=== PATIENT | female | born 1935 | race Caucasian/White ===

== ENCOUNTER 2016-11-24 09:54 | Emergency (ER) | payer OTHER ==
[2016-11-24 09:57] VITALS: BMI 29.0
--- NOTE | 2016-11-24 10:11 | DR.CP ---
HPI - Time Seen Time seen: 10:00 - PCP Primary Care Physician: Annamaria BLEVINS - HPI Comment HPI Comment: SUDDEN ONSET OF SUBSTERNAL PAIN RADIATING TO JAWS AND RIGHT ARM. PAIN RADIATES TO HER TEETH WE. SLIGHT SOB. PAIN SPONTANOUSLY DECREASING AND RESOLVE WHILE IN ED. - Complaint Chief Complaint Doctor Comments: CHEST PAIN. Chief Complaint:: PT. C/O CHEST PAIN, RIGHT ARM PAIN, AND JAW PAIN. PT. STATES "MY TEETH HURT." PT. ALSO C/O SOB. - Reviewed Nurses Notes Review: Yes - Source History Provided: Patient - Mode of Arrival Mode of Arrival: Ambulatory - Timing Onset of Chief Complaint: 11/24/16 Came on: Suddenly Pain: Resolved (IN ED SPONTANOUSLY) - Duration Duration: Since Onset Duration: Hours - Location Location of Chest Pain: Chest Chest Pain Radiation Location: Left Jaw (AND TEETH), Right Jaw, Right Arm - Context Cardiac Risk Factors: Family History, Hyperlipidemia PE Risk Factors: None History of: None Prehospital Care: Other (GI MED.) - Quality Quality: Pressure like, Aching - Severity Severity: Moderate - Modifying Factors Worsens: Nothing Impoves: Nothing - Associated Signs and Symptoms Associated Signs and Symptoms: Shortness of Breath PMH - PMH Past Medical History: No Past Surgical History: Yes Surgical History: Thyroidectomy - Family History History of Family Medical Conditions: No - Social History Does patient currently use any type of tobacco product: No Have you used tobacco products in the last 12 months: No Type of Tobacco Use: None Does any household member use tobacco: No Alcohol Use: None Do you use any recreational Drugs:: No Lives With: Alone Lives Where: Home - infectious screening In the last 2 months have you had wt loss of >10#?: NO Have you had fever, night sweats or hemotysis?: No Have you traveled outside the country in the last 6 months?: No Isolation: Standard ROS - Review of Systems Constitutional: No Symptoms Reported Eyes: No Symptoms Reported ENTM: No Symptoms Reported Respiratoy: Short of Breath Cardiovascular: Chest Pain Gastrointestinal/Abdominal: No Symptoms Reported Genitourinary: No Symptoms Reported Neurological: No Symptoms Reported Musculoskeletal: Muscle Pain Integumentary: No Symptoms Reported Hematologic/Lymphatic: No Symptoms Reported Endocrine: No Symptoms Reported All Other Systems: Reviewed and Negative PE - Vitals Vitals: Temperature 97.1 F Pulse Rate 74 Respiratory Rate 16 Blood Pressure 137/63 O2 Sat by Pulse Oximetry 97 - General Limitations: No Limitations General Appearance: Alert - Head Head Exam: Normal Inspection - Eyes Eye exam: Normal Appearance, PERRL, EOMI. negative: Scleral Icterus, Conjunctival Injection, Nystagmus, Periorbital Swelling, Periorbital Tenderness - ENT ENT Exam: Normal External Ear Exam - Chest Chest Inspection: Symmetric Chest Wall Rise - Respiratory Respiratory Exam: Normal Lung Sounds Bilat Respiratory Exam: Bilateral Clear to Auscultation - Cardiovascular Cardiovascular Exam: Regular Rate, Normal Rhythm, Normal Heart Sounds Pulse: Normal, Radial, Femoral Edema: Normal - Abdominal Exam Abdominal Exam: Normal Bowel Sounds, Soft, Tenderness - Extremities Extremities Exam: Normal Inspection - Back Back Exam: Normal Inspection - Neurologic Neurological Exam: Alert, Oriented X3, CN II-XII Intact, Normal Gait, Motor Sensory Deficit, Reflexes Normal - Psychiatric Psychiatric Exam: Anxious - Skin Skin Exam: Warm, Dry MDM - Additional Information Additional Information Obtained From: Family - Differential Diagnosis Differential Diagnosis: Angina, Chest Wall Pain, Gastritis, Myocardial Infarction, Pericarditis, Pancreatitis, Pneumonia, Pneumothorax, Pulmonary Embolus Course - Treatment Treatment: SEE ORDERTS. - Consultation Consultation Comments: DISCUSS PATIENT WITH DR. BENAVIDES. HE WILL ADMIT PATIENT. - Education/Counseling Education/Counseling: Patient, Family, Education Educated On: Diagnosis ROR - Labs Reviewed Laboratory Results Reviewed?: Yes Result Diagrams: 11/25/16 03:15 11/24/16 10:15 Laboratory: WBC 5.3 X10^3/uL (3.6-10.0) 11/24/16 10:15 RBC 4.87 X10^6/uL (3.5-5.4) 11/24/16 10:15 Hgb 14.4 g/dL (12.0-16.0) 11/24/16 10:15 Hct 42.1 % (36.0-47.0) 11/24/16 10:15 MCV 86.3 fL (80.0-100.0) 11/24/16 10:15 MCH 29.6 pg (27.0-34.0) 11/24/16 10:15 MCHC 34.3 g/dL (33.0-35.0) 11/24/16 10:15 RDW 13.3 % (11.6-16.5) 11/24/16 10:15 Plt Count 207 X10^3/uL (150.0-450.0) 11/24/16 10:15 MPV 8.6 fL (7.4-11.0) 11/24/16 10:15 Neut % 62.5 % (42.0-75.0) 11/24/16 10:15 Lymph % 27.8 % (21.0-51.0) 11/24/16 10:15 [place] % 6.4 % (0.0-13.0) 11/24/16 10:15 Eos % 2.4 % (0.9-2.9) 11/24/16 10:15 Baso % 0.9 % (0.2-1.0) 11/24/16 10:15 Neut # 3.3 x10^3/uL (2.2-4.8) 11/24/16 10:15 Lymph # 1.5 X10^3/uL (1.3-2.9) 11/24/16 10:15 [place] # 0.3 x10^3/uL (0.3-0.8) 11/24/16 10:15 Eos # 0.1 x10^3/uL (0.0-0.2) 11/24/16 10:15 Baso # 0.0 X10^3/uL (0.0-0.1) 11/24/16 10:15 Absolute Nucleated RBC 0.1 /100WBC 11/24/16 10:15 INR Target Range - 11/24/16 10:15 INR 0.98 (0.8-1.3) 11/24/16 10:15 PTT 32.7 SECONDS (22.9-36.5) 11/24/16 10:15 PTT Comment - 11/24/16 10:15 Sodium 143 mmol/L (136-145) 11/24/16 10:15 Corrected Sodium 145 mmol/L (136-145) 11/24/16 10:15 Potassium 4.0 mmol/L (3.5-5.1) 11/24/16 10:15 Chloride 106 mmol/L (98-107) 11/24/16 10:15 Carbon Dioxide 25.2 mmol/L (21-32) 11/24/16 10:15 BUN 24 mg/dL (7-18) H 11/24/16 10:15 Creatinine 0.98 mg/dL (0.55-1.02) 11/24/16 10:15 Est GFR (MDRD) Af Amer > 60 (>60) 11/24/16 10:15 Est GFR (MDRD) Non-Af 58 (>60) L 11/24/16 10:15 Glucose 174 mg/dL (65-99) H 11/24/16 10:15 Calcium 9.7 mg/dL (8.5-10.1) 11/24/16 10:15 Corrected Calcium TNP 11/24/16 10:15 Magnesium 2.2 mg/dL (1.7-2.9) 11/24/16 10:15 Total Bilirubin 0.60 mg/dL (0.2-1.0) 11/24/16 10:15 AST 23 Units/L (15-37) 11/24/16 10:15 ALT 32 Units/L (12-78) 11/24/16 10:15 Alkaline Phosphatase 68 Units/L (46-116) 11/24/16 10:15 Creatine Kinase 123 Units/L (26-192) 11/24/16 10:15 CK-MB (CK-2) 2.9 ng/mL (0-4.0) 11/24/16 10:15 CK/CKMB % Calc 2.4 % (<4) 11/24/16 10:15 Troponin I < 0.02 ng/mL (0-1.5) 11/24/16 10:15 B-Natriuretic Peptide 33.9 pg/mL (0-79) 11/24/16 10:15 Total Protein 7.4 g/dL (6.4-8.2) 11/24/16 10:15 Albumin 4.1 g/dL (3.4-5.0) 11/24/16 10:15 Globulin 3.3 g/dL (2.5-4.5) 11/24/16 10:15 Albumin/Globulin Ratio 1.2 Ratio (1.1-2.1) 11/24/16 10:15 Triglycerides 83 mg/dL (0-150) 11/24/16 10:15 Cholesterol 182 mg/dL (0-200) 11/24/16 10:15 LDL Cholesterol, Calc 101 mg/dL (0-100) H 11/24/16 10:15 HDL Cholesterol 64 mg/dL (40-60) H 11/24/16 10:15 Cholesterol/HDL Ratio 2.8 (0.0-5.0) 11/24/16 10:15 - XRAY XRAY Interpreted by: Radiologist XRAY Findings: REPORT DISCUSS WITH PATIENT AND FAMILY. - EKG Rhythm: NSR (EKG NOTED) - Diagnosis Discharge Problem: Chest pain Qualifiers: Chest pain type: precordial pain Qualified Code(s): R07.2 - Precordial pain - Discharge Plan Disposition: ADMITTED INPATIENT Condition: Stable - Follow ups/Referrals - Instructions
[2016-11-24] MEDS ORDERED: ASPIRIN 81 MG CHEWTAB ONE (10:14)
--- NOTE | 2016-11-24 10:34 | RAD ---
Chest, one view Indication: Chest pain, shortness of breath Comparison: None Findings: Cardiac silhouette is unremarkable. The lungs are mildly hypoinflated, but essentially tammy ar, without dense infiltrate or large pleural effusion. The bony thorax is unremarkable. Impression: No acute cardiopulmonary disease. Reported By:
[2016-11-24 10:48] LABS: BLOOD UREA NITROGEN 24 mg/dL (7-18); CALCIUM 9.7 mg/dL (8.5-10.1); CARBON DIOXIDE 25.2 mmol/L (21-32); CHLORIDE 106 mmol/L (98-107); COR NA(FOR HYPERGLY) 145 mmol/L (136-145); CREATININE 0.98 mg/dL (0.55-1.02); GLUCOSE 174 mg/dL (65-99); SODIUM 143 mmol/L (136-145); TROPONIN I < 0.02 ng/mL (0-1.5); eGFR BLACK RACES > 60 (>60); eGFR NON BLACK RACES 58 (>60)
[2016-11-24 10:50] LABS: B-TYPE NATRIURETIC PEPTIDE 33.9 pg/mL (0-79)
[2016-11-24 10:51] LABS: ALANINE AMINOTRANSFERASE 32 Units/L (12-78); ALBUMIN 4.1 g/dL (3.4-5.0); ALKALINE PHOSPHATASE 68 Units/L (46-116); ASPARTATE AMINO TRANSFERASE 23 Units/L (15-37); CHOL/HDL RATIO 2.8 (0.0-5.0); CHOLESTEROL 182 mg/dL (0-200); CKMB % 2.4 % (<4); CREATINE KINASE 123 Units/L (26-192); CREATINE KINASE MB 2.9 ng/mL (0-4.0); HDL CHOLESTEROL 64 mg/dL (40-60); MAGNESIUM 2.2 mg/dL (1.7-2.9); TOTAL PROTEIN 7.4 g/dL (6.4-8.2); TRIGLYCERIDES 83 mg/dL (0-150)
[2016-11-24 10:58] LABS: BASOPHILS % (AUTO) 0.9 % (0.2-1.0); EOSINOPHILS # (AUTO) 0.1 x10^3/uL (0.0-0.2); EOSINOPHILS % (AUTO) 2.4 % (0.9-2.9); HEMATOCRIT 42.1 % (36.0-47.0); HEMOGLOBIN 14.4 g/dL (12.0-16.0); LYMPHOCYTES # (AUTO) 1.5 X10^3/uL (1.3-2.9); LYMPHOCYTES % (AUTO) 27.8 % (21.0-51.0); MEAN CORPUSCULAR HEMOGLOBIN 29.6 pg (27.0-34.0); MEAN CORPUSCULAR HGB CONC 34.3 g/dL (33.0-35.0); MEAN CORPUSCULAR VOLUME 86.3 fL (80.0-100.0); MEAN PLATELET VOLUME 8.6 fL (7.4-11.0); MONOCYTES # (AUTO) 0.3 x10^3/uL (0.3-0.8); MONOCYTES % (AUTO) 6.4 % (0.0-13.0); NEUTROPHILS # (AUTO) 3.3 x10^3/uL (2.2-4.8); NEUTROPHILS % (AUTO) 62.5 % (42.0-75.0); PLATELET COUNT 207 X10^3/uL (150.0-450.0); RED BLOOD COUNT 4.87 X10^6/uL (3.5-5.4); RED CELL DISTRIBUTION WIDTH 13.3 % (11.6-16.5); WHITE BLOOD COUNT 5.3 X10^3/uL (3.6-10.0)
[2016-11-24] MEDS ORDERED: ASPIRIN 81 MG CHEWTAB PO SCH (11:00)
[2016-11-24] MEDS ORDERED: NITROSTAT SL PRN ×2 (11:33→12:26)
[2016-11-24] MEDS ORDERED: NS 1/2 1000 ML IV 1,000 ML IV SCH (12:00)
[2016-11-24] MEDS ORDERED: PEPCID 20 MG IV PREMIX* 20 MG/50 ML BAG IV SCH (12:00)
[2016-11-24 16:16] LABS: CKMB % 2.5 % (<4); CREATINE KINASE 112 Units/L (26-192); CREATINE KINASE MB 2.8 ng/mL (0-4.0); TROPONIN I < 0.02 ng/mL (0-1.5)
[2016-11-24] MEDS ORDERED: NS 1/2 1000 ML IV 1,000 ML IV ONE (17:08)
--- NOTE | 2016-11-24 19:06 | DR.H&P ---
H&P - History & Physical for Day of: H&P Date: 11/24/16 - Chief Complaint Chief Complaint: CP - Allergies Allergies/Adverse Reactions: Allergies Allergy/AdvReac Type Severity Reaction Status Date / Time Codeine AdvReac Intermediate NAUSEA Verified 11/24/16 09:57 - History of Present Illness History of Present Illness: 81 WF ER ADMISSION AFTER PRESENTING WITH CO CP RADIATING UP CHEST TO BACK AND THROAT. PT STATES SHE HAS NO HX CAD, HAD CATH 2- [address] MCKAY DUE TO SIMILAR EPISODE. PT DENIES ANY KNOWN GERD. PLAN TO ADMIT R/O AMI, SERIAL CE, GB US - Past Medical History Past Medical History: Dyslipidemia, Hypothyroidism - Past Surgical History Surgical History: Thyroidectomy, Tonsillectomy - Family History Family Medical History: Diabetes Mellitus, Cancer, Heart Failure - Social History Does patient currently use any type of tobacco product: No Have you used tobacco products in the last 12 months: No Type of Tobacco Use: None Does any household member use tobacco: No Alcohol Use: None Drug Use: None - Medications Home Medications: Bimatoprost [LUMIGAN OPHTH SOLN 2.5 ML *] 1 drop EACHEYE HS 11/24/16 [History Confirmed 11/24/16] Calcium Carbonate-Cholecalcife [Calcium 600+D3 600-800 mg-Unit] 1 tab PO DAILY 11/24/16 [History Confirmed 11/24/16] Donepezil Hydrochloride [ARICEPT TAB 5 MG *] 1 tab PO HS 11/24/16 [History Confirmed 11/24/16] Ergocalciferol [Vitamin D (1.25MG)] 1 cap PO .WEEKLY 11/24/16 [History Confirmed 11/24/16] Fenofibrate [Fenofibrate 160 mg] 1 tab PO HS 11/24/16 [History Confirmed ] Furosemide [LASIX TAB 20 MG *] 1 tab PO DAILY PRN 11/24/16 [History Confirmed ] Levothyroxine Sodium [SYNTHROID 125 mcg *] 1 tab PO DAILY 11/24/16 [History Confirmed 11/24/16] Meloxicam [MOBIC 15 MG *] 1 tab PO DAILY 11/24/16 [History Confirmed 11/24/16] - Review of Systems Constitutional: No Symptoms Reported Eyes: No Symptoms Reported ENT: No Symptoms Reported Respiratory: No Symptoms Reported Cardiovascular: Chest Pain Gastrointestinal: denies: Diarrhea, Constipation Genitourinary: No Symptoms Reported Musculoskeletal: No Symptoms Reported Skin: No Symptoms Reported Neurological: No Symptoms Reported - Physical Exam Vital Signs: Temperature 97.5 F Pulse Rate [Left Brachial] 66 Respiratory Rate 16 Blood Pressure [Left Arm] 167/85 O2 Sat by Pulse Oximetry 93 Oriented: Normal Eyes: Normal Ear: Normal Nose: Normal Throat: Normal Respiratory: Clear Throughout Cardiovascular: Normal : Normal Auscultation: Bowel Sounds: Normal Palpation: Normal Tenderness: Epigastric Skin: Normal Musculoskeletal: Normal Psychiatric: Normal Speech Pattern: Clear, Appropriate - Assessment/Plan (1) Chest pain Qualifiers: Chest pain type: C Ischemic chest pain type: I Status: Acute Plan: ADMIT, R/O AMI, SERIAL CE AND EKGS, CXR ON ADMISSION. PROTONIX IV, AM GB US (2) Hyperlipidemia Qualifiers: Hyperlipidemia type: H Status: Acute Plan: RESUME HOME MEDS
[2016-11-24] MEDS: PROTONIX INJ 40 MG VIAL IVP SCH (20:23)
[2016-11-24] MEDS: PEPCID 20 MG IV PREMIX* 20 MG/50 ML BAG IV SCH (20:24)
[2016-11-24] MEDS ORDERED: TRICOR TAB 160 MG PO SCH (21:00)
[2016-11-24 23:41] LABS: CKMB % 2.4 % (<4); CREATINE KINASE 96 Units/L (26-192); CREATINE KINASE MB 2.3 ng/mL (0-4.0); TROPONIN I < 0.02 ng/mL (0-1.5)
[2016-11-25 05:29] LABS: BASOPHILS % (AUTO) 0.5 % (0.2-1.0); EOSINOPHILS # (AUTO) 0.2 x10^3/uL (0.0-0.2); EOSINOPHILS % (AUTO) 2.8 % (0.9-2.9); HEMATOCRIT 40.1 % (36.0-47.0); HEMOGLOBIN 13.6 g/dL (12.0-16.0); LYMPHOCYTES # (AUTO) 1.9 X10^3/uL (1.3-2.9); LYMPHOCYTES % (AUTO) 35.4 % (21.0-51.0); MEAN CORPUSCULAR HEMOGLOBIN 29.7 pg (27.0-34.0); MEAN CORPUSCULAR VOLUME 87.2 fL (80.0-100.0); MEAN PLATELET VOLUME 8.4 fL (7.4-11.0); MONOCYTES # (AUTO) 0.4 x10^3/uL (0.3-0.8); MONOCYTES % (AUTO) 7.4 % (0.0-13.0); NEUTROPHILS % (AUTO) 53.9 % (42.0-75.0); PLATELET COUNT 196 X10^3/uL (150.0-450.0); RED CELL DISTRIBUTION WIDTH 13.4 % (11.6-16.5); WHITE BLOOD COUNT 5.5 X10^3/uL (3.6-10.0)
[2016-11-25 06:12] LABS: ALANINE AMINOTRANSFERASE 33 Units/L (12-78); ALBUMIN 3.7 g/dL (3.4-5.0); ALKALINE PHOSPHATASE 61 Units/L (46-116); AMYLASE 29 Units/L (25-115); ASPARTATE AMINO TRANSFERASE 24 Units/L (15-37); BLOOD UREA NITROGEN 20 mg/dL (7-18); CALCIUM 8.7 mg/dL (8.5-10.1); CARBON DIOXIDE 23.5 mmol/L (21-32); CHLORIDE 107 mmol/L (98-107); CREATININE 0.89 mg/dL (0.55-1.02); GLUCOSE 107 mg/dL (65-99); LIPASE 142 Units/L (73-393); SODIUM 143 mmol/L (136-145); eGFR BLACK RACES > 60 (>60); eGFR NON BLACK RACES > 60 (>60)
--- NOTE | 2016-11-25 07:46 | US ---
HISTORY: Chest pain radiating to shoulder Study: Right upper quadrant abdominal ultrasound Comparison: No priors Technique: Multiple currie scale and color flow Doppler images of the right upper quadrant were obtain ed. Findings: The liver is normal in echotexture and size. No focal intraparenchymal mass or intrahepatic biliary ductal dilatation can be observed. Multiple small stones are present within the gallbladder. The l argest measurable stone is about 4.9 millimeters.. The common bile duct is unremarkable measuring 4 millimeters. No pericholecystic fluid or gallbladder wall thickening can be observed. The right kidney appears normal in size without focal parenchymal mass or nephrolithiasis. The righ t kidney measurers 4.2 x 4.9 x 9.9 centimeters.. No hydronephrosis or perirenal fluid can be observ ed. The pancreas is normal. IMPRESSION: Multiple small gallstones are present without gallbladder wall thickening or pericholecystic fluid. Reported By:
[2016-11-25] MEDS: PEPCID 20 MG IV PREMIX* 20 MG/50 ML BAG IV SCH (08:36)
[2016-11-25] MEDS: PROTONIX INJ 40 MG VIAL IVP SCH (08:37)
[2016-11-25 08:50] VITALS: BP 147/74
[2016-11-25] MEDS ORDERED: SYNTHROID 125 mcg TAB PO SCH (09:00)
[2016-11-25] MEDS ORDERED: ASPIRIN PO SCH ×2 (09:00)
[2016-11-25] MEDS ORDERED: NS 1/2 1000 ML IV 1,000 ML IV SCH (12:00)
--- NOTE | 2016-11-25 14:50 | PCM.DCPLAN ---
Discharge Summary - Admission Date Date of Admission: 11/24/16 - Discharge Date Discharge Date: 11/25/16 - Admission Diagnoses (1) Chest pain Status: Acute (2) Hyperlipidemia Status: Acute - Discharge Diagnoses Discharge Diagnosis: CP HYPOTHYROID HYPERLIPIDEMIA - Discharge Medications Discharge Medications: Bimatoprost [LUMIGAN OPHTH SOLN 2.5 ML *] 1 drop EACHEYE HS 11/24/16 [History] Calcium Carbonate-Cholecalcife [Calcium 600+D3 600-800 mg-Unit] 1 tab PO DAILY 11/24/16 [History] Donepezil Hydrochloride [ARICEPT TAB 5 MG *] 1 tab PO HS 11/24/16 [History] Ergocalciferol [Vitamin D (1.25MG)] 1 cap PO .WEEKLY 11/24/16 [History] Fenofibrate [Fenofibrate 160 mg] 1 tab PO HS 11/24/16 [History] Furosemide [LASIX TAB 20 MG *] 1 tab PO DAILY PRN 11/24/16 [History] Levothyroxine Sodium [SYNTHROID 125 mcg *] 1 tab PO DAILY 11/24/16 [History] Meloxicam [MOBIC 15 MG *] 1 tab PO DAILY 11/24/16 [History] - Hospital Course Vital Signs: Temperature 98.1 F Pulse Rate [Left Brachial] 66 Respiratory Rate 16 Blood Pressure [Left Arm] 147/74 O2 Sat by Pulse Oximetry 94 Latest Lab Results: Laboratory Last Values WBC 5.5 X10^3/uL (3.6-10.0) 11/25/16 03:15 RBC 4.60 X10^6/uL (3.5-5.4) 11/25/16 03:15 Hgb 13.6 g/dL (12.0-16.0) 11/25/16 03:15 Hct 40.1 % (36.0-47.0) 11/25/16 03:15 MCV 87.2 fL (80.0-100.0) 11/25/16 03:15 MCH 29.7 pg (27.0-34.0) 11/25/16 03:15 MCHC 34.0 g/dL (33.0-35.0) 11/25/16 03:15 RDW 13.4 % (11.6-16.5) 11/25/16 03:15 Plt Count 196 X10^3/uL (150.0-450.0) 11/25/16 03:15 MPV 8.4 fL (7.4-11.0) 11/25/16 03:15 Neut % 53.9 % (42.0-75.0) 11/25/16 03:15 Lymph % 35.4 % (21.0-51.0) 11/25/16 03:15 [place] % 7.4 % (0.0-13.0) 11/25/16 03:15 Eos % 2.8 % (0.9-2.9) 11/25/16 03:15 Baso % 0.5 % (0.2-1.0) 11/25/16 03:15 Neut # 3.0 x10^3/uL (2.2-4.8) 11/25/16 03:15 Lymph # 1.9 X10^3/uL (1.3-2.9) 11/25/16 03:15 [place] # 0.4 x10^3/uL (0.3-0.8) 11/25/16 03:15 Eos # 0.2 x10^3/uL (0.0-0.2) 11/25/16 03:15 Baso # 0.0 X10^3/uL (0.0-0.1) 11/25/16 03:15 Absolute Nucleated RBC 0.1 /100WBC 11/25/16 03:15 INR Target Range - 11/24/16 10:15 INR 0.98 (0.8-1.3) 11/24/16 10:15 PTT 32.7 SECONDS (22.9-36.5) 11/24/16 10:15 PTT Comment - 11/24/16 10:15 Sodium 143 mmol/L (136-145) 11/25/16 03:15 Corrected Sodium TNP 11/25/16 03:15 Potassium 3.8 mmol/L (3.5-5.1) 11/25/16 03:15 Chloride 107 mmol/L (98-107) 11/25/16 03:15 Carbon Dioxide 23.5 mmol/L (21-32) 11/25/16 03:15 BUN 20 mg/dL (7-18) H 11/25/16 03:15 Creatinine 0.89 mg/dL (0.55-1.02) 11/25/16 03:15 Est GFR (MDRD) Af Amer > 60 (>60) 11/25/16 03:15 Est GFR (MDRD) Non-Af > 60 (>60) 11/25/16 03:15 Glucose 107 mg/dL (65-99) H 11/25/16 03:15 Hemoglobin A1c 5.7 % (4.5-6.2) 11/24/16 10:15 Calcium 8.7 mg/dL (8.5-10.1) 11/25/16 03:15 Corrected Calcium TNP 11/25/16 03:15 Magnesium 2.2 mg/dL (1.7-2.9) 11/24/16 10:15 Total Bilirubin 0.50 mg/dL (0.2-1.0) 11/25/16 03:15 AST 24 Units/L (15-37) 11/25/16 03:15 ALT 33 Units/L (12-78) 11/25/16 03:15 Alkaline Phosphatase 61 Units/L (46-116) 11/25/16 03:15 Creatine Kinase 96 Units/L (26-192) 11/24/16 22:30 CK-MB (CK-2) 2.3 ng/mL (0-4.0) 11/24/16 22:30 CK/CKMB % Calc 2.4 % (<4) 11/24/16 22:30 Troponin I < 0.02 ng/mL (0-1.5) 11/24/16 22:30 B-Natriuretic Peptide 33.9 pg/mL (0-79) 11/24/16 10:15 Total Protein 7.0 g/dL (6.4-8.2) 11/25/16 03:15 Albumin 3.7 g/dL (3.4-5.0) 11/25/16 03:15 Globulin 3.3 g/dL (2.5-4.5) 11/25/16 03:15 Albumin/Globulin Ratio 1.1 Ratio (1.1-2.1) 11/25/16 03:15 Triglycerides 83 mg/dL (0-150) 11/24/16 10:15 Cholesterol 182 mg/dL (0-200) 11/24/16 10:15 LDL Cholesterol, Calc 101 mg/dL (0-100) H 11/24/16 10:15 HDL Cholesterol 64 mg/dL (40-60) H 11/24/16 10:15 Cholesterol/HDL Ratio 2.8 (0.0-5.0) 11/24/16 10:15 Amylase 29 Units/L (25-115) 11/25/16 03:15 Lipase 142 Units/L (73-393) 11/25/16 03:15 H. pylori IgG Antibody Negative (NEGATIVE) 11/24/16 10:15 Hospital Course: PATIENT IS A 81-YEAR-OLD WHITE FEMALE WHO WAS ADMITTED FROM THE EMERGENCY ROOM AFTER PRESENTING WITH COMPLAINTS OF CHEST PAIN. pATIENT STATED PAIN RADIATED FROM CHEST UP TO NECK. pATIENT DENIES ANY SHORTNESS OF BREATH DIZZINESS HEADACHE BLURRY VISION. pATIENT STATES SHE'S HAD 3 OTHER EPISODES SIMILAR WITHIN THE LAST 2-3 YEARS. pATIENT HAD A HEART CATHETER LESS THAN 2 YEARS AGO PER dR. MCKAY WITHOUT ANY CORONARY ARTERY BLOCKAGES. pATIENT DOES HAVE HISTORY OF THYROID DISEASE STATUS POST THYROIDECTOMY ON sYNTHROID AND HYPERLIPIDEMIA. pATIENT DENIES ANY INTESTINAL/gi SYMPTOMS AT THIS TIME. pATIENT WAS ADMITTED FOR SERIAL CARDIAC ENZYMES AND ekgS TO RULE OUT ACUTE mi. pATIENT ALSO HAD AMYLASE AND LIPASE WELL GALLBLADDER ULTRASOUND. pATIENT'S lftS AND AMYLASE AND LIPASE WERE NORMAL PATIENT WAS NOTED TO HAVE MULTIPLE GALLSTONES WITHOUT SIGNS OR SYMPTOMS OF CHOLECYSTITIS. pATIENT DENIED ANY EPISODES OF PAIN SINCE ADMISSION AND STATED SHE WAS READY TO GO HOME. pATIENT WAS DISCHARGED HOME ON MEDICATIONS SHE WAS TAKING PRIOR TO ADMISSION. pATIENT INSTRUCTED TO FOLLOW-UP WITH HER PRIMARY CARE wHILE IN 1 WEEK FOR FURTHER EVALUATION OF CHEST PAIN. pATIENT INFORMED OF DIAGNOSTIC TESTS FINDINGS RECOMMENDED HER FOLLOW-UP WITH THE SURGEON ON AN OUTPATIENT BASIS. pATIENT INSTRUCTED TO FOLLOW A BLAND DIET TO AVOID ANY gi UPSET OR gi RELATED CHEST PAIN. pATIENT ALSO INSTRUCTED TO FOLLOW-UP WITH dR. MCKAY ON OUTPATIENT BASIS. pATIENT VERBALIZED UNDERSTANDING AND AND WAS PAIN- FREE AND STABLE ON DISCHARGE. - Discharge Plan Disposition: 01 HOME, SELF-CARE Condition: Stable - Follow ups/Referrals Follow ups/Referrals: MIKALA BLEVINS [Primary Care Provider] - 3 days - Instructions
== END 2016-11-25 09:52 | disposition home or self-care (01) | DRG 313 ==
LOC: ER 10:05 → OBS 11:26 → ER 12:06
PROVIDERS: ADMIT Internal Medicine; ATTEND Internal Medicine
DX: R07.2 Precordial pain (principal); E78.2 Mixed hyperlipidemia; E03.8 Other specified hypothyroidism; R94.31 Abnormal electrocardiogram [ECG] [EKG]; R06.02 Shortness of breath; M79.601 Pain in right arm; R68.84 Jaw pain; K80.20 Calculus of gallbladder without cholecystitis without obstruction
CPT/HCPCS: 36415; 71010; 76705; 80053; 80061; 82150; 82550; 82553; 83036; 83690; 83735; 83880; 84484; 85025; 85610; 85730; 86677; 93005; 93010; 94760; 96365; 99284; A4222; C9113; S0028; G0378

== ENCOUNTER 2016-12-15 09:25 | Day surgery (SDC) | payer OTHER ==
[2016-12-15] MEDS ORDERED: NS 50 ML IV + SPIKE MINIBAG* 50 ML IV ONE ×2 (09:45→12:21)
[2016-12-15] MEDS ORDERED: ANCEF VIAL 1 GM ONE ×2 (09:45→12:21)
[2016-12-15] MEDS ORDERED: NS 1000 ML 1,000 ML ONE (09:46)
[2016-12-15 10:41] LABS: BASOPHILS # (AUTO) 0.1 X10^3/uL (0.0-0.1); BASOPHILS % (AUTO) 1.2 % (0.2-1.0); EOSINOPHILS # (AUTO) 0.1 x10^3/uL (0.0-0.2); EOSINOPHILS % (AUTO) 2.6 % (0.9-2.9); HEMATOCRIT 41.9 % (36.0-47.0); HEMOGLOBIN 14.4 g/dL (12.0-16.0); LYMPHOCYTES # (AUTO) 1.5 X10^3/uL (1.3-2.9); LYMPHOCYTES % (AUTO) 27.4 % (21.0-51.0); MEAN CORPUSCULAR HEMOGLOBIN 29.6 pg (27.0-34.0); MEAN CORPUSCULAR HGB CONC 34.3 g/dL (33.0-35.0); MEAN CORPUSCULAR VOLUME 86.3 fL (80.0-100.0); MEAN PLATELET VOLUME 8.5 fL (7.4-11.0); MONOCYTES # (AUTO) 0.3 x10^3/uL (0.3-0.8); MONOCYTES % (AUTO) 5.4 % (0.0-13.0); NEUTROPHILS # (AUTO) 3.5 x10^3/uL (2.2-4.8); NEUTROPHILS % (AUTO) 63.4 % (42.0-75.0); PLATELET COUNT 199 X10^3/uL (150.0-450.0); RED BLOOD COUNT 4.86 X10^6/uL (3.5-5.4); RED CELL DISTRIBUTION WIDTH 13.4 % (11.6-16.5); WHITE BLOOD COUNT 5.6 X10^3/uL (3.6-10.0)
[2016-12-15 10:54] LABS: ALANINE AMINOTRANSFERASE 33 Units/L (12-78); ALBUMIN 4.1 g/dL (3.4-5.0); ALKALINE PHOSPHATASE 63 Units/L (46-116); ASPARTATE AMINO TRANSFERASE 24 Units/L (15-37); BLOOD UREA NITROGEN 23 mg/dL (7-18); CALCIUM 9.7 mg/dL (8.5-10.1); CARBON DIOXIDE 26.5 mmol/L (21-32); CHLORIDE 107 mmol/L (98-107); COR NA(FOR HYPERGLY) 143 mmol/L (136-145); CREATININE 1.06 mg/dL (0.55-1.02); GLUCOSE 117 mg/dL (65-99); SODIUM 143 mmol/L (136-145); TOTAL PROTEIN 7.4 g/dL (6.4-8.2); eGFR BLACK RACES > 60 (>60); eGFR NON BLACK RACES 53 (>60)
[2016-12-15] MEDS ORDERED: FENTANYL INJ 250 mcg ONE (11:35)
[2016-12-15] MEDS ORDERED: XYLOCAINE-MPF 1% ONE (11:54)
[2016-12-15] MEDS ORDERED: MARCAINE 0.25% WITH EPI IJ ONE (11:54)
[2016-12-15] MEDS ORDERED: LR 1000 ML IV 1,000 ML IV ONE (12:58)
[2016-12-15] MEDS ORDERED: DILAUDID INJ IVP PRN (13:23)
[2016-12-15] MEDS ORDERED: ZOFRAN INJ 4 MG VIAL IVP PRN (13:23)
[2016-12-15] MEDS ORDERED: PHENERGAN INJ 25 MG IVP PRN (13:23)
[2016-12-15] MEDS ORDERED: REGLAN INJ 10 MG VIAL IVP PRN (13:23)
[2016-12-15] MEDS ORDERED: BENADRYL INJ 50 MG VIAL IVP PRN (13:23)
[2016-12-15] MEDS ORDERED: ZOFRAN INJ 4 MG VIAL ONE ×2 (14:01→15:45)
[2016-12-15] MEDS ORDERED: PHENERGAN INJ 25 MG ONE (14:36)
[2016-12-15] MEDS ORDERED: QUELICIN (OR ANECTINE) ONE (15:45)
[2016-12-15] MEDS ORDERED: LTA KIT LIDOCAINE 4% ONE (15:45)
[2016-12-15] MEDS ORDERED: VERSED ONE (15:45)
[2016-12-15] MEDS ORDERED: ROBINUL ONE (15:45)
[2016-12-15] MEDS ORDERED: NORCURON INJ 10 MG VIAL ONE (15:45)
[2016-12-15] MEDS ORDERED: NEO-SYNEPHRINE INJ ONE (15:45)
[2016-12-15] MEDS ORDERED: XYLOCAINE 2 % (PLAIN) ONE (15:45)
[2016-12-15] MEDS ORDERED: SUPRANE IN ONE (15:45)
[2016-12-15] MEDS ORDERED: EPHEDRINE SULFATE INJ ONE (15:45)
[2016-12-15] MEDS ORDERED: NEOSTIGMINE INJ ONE (15:45)
[2016-12-15] MEDS ORDERED: DIPRIVAN VIAL ONE (15:45)
[2016-12-15 16:45] VITALS: BP 121/64
== END 2016-12-15 15:15 | disposition home or self-care (01) ==
LOC: SURG1 09:25
PROVIDERS: ATTEND Student in an Organized Health Care Education/Training Program
PROC: 0FT44ZZ Resection of Gallbladder, Percutaneous Endoscopic Approach (ICD-10-PCS; principal; 2016-12-15 10:00)
DX: K80.80 Other cholelithiasis without obstruction (principal)
CPT/HCPCS: 36415; 80053; 85025; 85610; 85730; 99100; A4222; S0020; J0330; J0690; J2001; J2250; J2370; J2405; J2550; J2710; J3010; J3490; J7120

== ENCOUNTER → 2017-02-14 | Outpatient (CLI) | payer OTHER ==
--- NOTE | 2017-02-14 15:39 | RAD ---
HISTORY: Right hip pain, nontraumatic Study: Right hip two views, AP pelvis Comparison: None Findings: A single frontal view of the pelvis demonstrates the pelvic ring to be intact. No evidence for acut e cortical disruption or dislocation of the hip can be observed. Frog leg views of the hip fails to demonstrate evidence for fracture or significant joint abnormality. Impression: 1. Negative exam. Reported By:
--- NOTE | 2017-02-14 15:42 | RAD ---
HISTORY: Lumbosacral radiculitis Study: AP and lateral lumbar spine Comparison: None Findings: There is lumbar rotoscoliosis convex right at L1-2. The alignment is otherwise normal. Bones are ost eopenic. The vertebral bodies are of average height. Degenerative disc disease is present at L1-2, L 4-5 L5-S1. The pedicles are intact. The SI joints are normal. Facet degenerative joint disease is pr esent bilaterally L4-5 and L5-S1. IMPRESSION: Dextro rotoscoliosis Multilevel degenerative disc disease at the levels noted above Facet degenerative joint disease bilaterally L4-5 Reported By:
== END | disposition home or self-care (01) | DRG 556 ==
LOC: RAD 15:04
PROVIDERS: ATTEND Nurse Practitioner Family
DX: M25.551 Pain in right hip (principal); M54.17 Radiculopathy, lumbosacral region; M51.36 Other intervertebral disc degeneration, lumbar region; M51.37 Other intervertebral disc degeneration, lumbosacral region; M47.896 Other spondylosis, lumbar region
CPT/HCPCS: 72100; 73501

== ENCOUNTER → 2017-02-22 | Outpatient (CLI) | payer OTHER ==
--- NOTE | 2017-02-23 18:47 | MRI ---
HISTORY: Back pain Study: MRI lumbar spine without contrast Comparison: None Technique: Multiplanar multi-sequence MRI of the lumbar spine was obtained. Sagittal T1, sagittal T 2, and stir weighted images, axial T1, and axial T2 images were obtained. Findings: There is moderate disc space narrowing throughout with diffuse moderate disc desiccation which is mo st severe at L5-S1. There is mild subluxation of L4 on L5. No pars defects are seen. There is mild s coliosis. The vertebral body height is well maintained throughout. There is a moderate disc bulge at L1-2 lateralizing slightly to the left causing moderate anterolateral dural sac effacement. There i s a small broad-based protrusion at L2-3 lateralizing to the right causing moderate anterolateral du ral sac effacement. There is a moderate asymmetric disc bulge at L3-4 lateralizing to the right caus ing moderate anterolateral dural sac effacement. There is some increased signal in the annulus poste riorly. There is a moderate asymmetric disc bulge at L4-5 lateralizing to the right which along with the subluxation is causing causing moderate anterolateral dural sac effacement. There is a mild to moderate disc bulge at L5-S1 causing mild dural sac effacement and moderate mild neural foraminal na rrowing bilaterally. There are moderate hypertrophic changes of the facets throughout with ligament flavum hypertrophy causing diffuse mild spinal stenosis. The bone marrow signal is normal throughout . The paravertebral soft tissues are normal. There is a 3 cm cystic mass in the right adnexal regio n. The SI joints are symmetric. IMPRESSION: Moderate multilevel degenerative disc disease which is most prominent at L5-S1 and associated mild t o moderate scoliosis with no acute abnormality seen . Mild subluxation of L4 on L5 which appears degenerative in etiology with an associated moderate asym metric disc bulge causing moderate anterolateral dural sac effacement and mild neural foraminal narr owing on the right . Moderate asymmetric disc bulge at L3-4 lateralizing to the right. Mild to moderate central disc bulge at L5-S1 causing mild dural sac effacement and mild neural lyle inal narrowing bilaterally . Small broad-based protrusion at L2-3 lateralizing to the right. Moderate central disc bulge at L1-2 causing moderate dural sac effacement. Moderate osteoarthritic changes of the facets throughout causing diffuse mild spinal stenosis. Questionable 3 cm ovarian cyst , recommend pelvic ultrasound for followup. Reported By:
== END ==
LOC: RAD 10:22
PROVIDERS: ATTEND Nurse Practitioner Family
DX: M54.17 Radiculopathy, lumbosacral region (principal)
CPT/HCPCS: 72148